=== PATIENT | female | born 1960 ===

== ENCOUNTER 2020-12-10 13:49 | Emergency (ER) | payer MEDICAID ==
--- NOTE | 2020-12-10 16:10 | CT ---
DATE OF SERVICE: 12/10/20 CLINICAL DATA: HEADACHE SINCE FALLING 1.[address] Un[address]: Multi slice axial acquisition was performed. Comparison is made to a prior exam dated 17 February 2009. The no masses or mass effect. No intracranial hemorrhage. No evidence of acute or subacute infarct. No osseous abnormalities. Impression: No acute intracranial abnormalities. MTDD
--- NOTE | 2020-12-10 16:56 | EDM.PDOC ---
ED HPI GENERAL MEDICAL PROBLEM - General Chief Complaint: Headache Stated Complaint: FELL AND LANDED ON HEAD Time Seen by Provider: 12/10/20 14:36 - History of Present Illness INITIAL COMMENTS - FREE TEXT/NARRATIVE: Pt is here with C/O H/A for [place] 10 days, after falling. She also feels tired with loss of appetite. She denies cough, SOB, wheezing. She describes her H/A as pin pricks on the side and back of her head. No visual changes, nausea, or vomiting. Headache Pain Score (Numeric/FACES): 8 - Related Data Allergies Allergy/AdvReac Type Severity Reaction Status Date / Time No Known Allergies Allergy Verified 12/10/20 14:59 Social & Family History - Family History Family Medical History: No Pertinent Family History - Tobacco Use Tobacco Use Status *Q: Never Tobacco User - Caffeine Use Caffeine Use: Reports: None - Recreational Drug Use Recreational Drug Use: No ED ROS GENERAL - Review of Systems Review Of Systems: Comprehensive ROS is negative, except as noted in HPI. Constitutional: Reports: Weakness, Fatigue Neurological: Reports: Headache ED EXAM, GENERAL - Physical Exam Exam: See Below General Appearance: Other (she looks tired, but is in no respiratory distress.) Course - Vital Signs Last Recorded V/S: Last Vital Signs Temp 97.7 F 12/10/20 15:04 Pulse 74 12/10/20 15:04 Resp 18 12/10/20 15:04 BP 157/85 H 12/10/20 15:04 Pulse Ox 94 L 12/10/20 15:04 - Orders/Labs/Meds Labs: Laboratory Tests 12/10/20 Range/Units 14:15 SARS CoV-2 RNA Rapid MARK Positive H - Re-Assessments/Exams Free Text/Narrative Re-Assessment/Exam: 12/10/20 16:54 Covid is Positive. Head CT is negative for any acute changes. She has not been vaccinated. She will be discharged home. Rest - OTC meds like Tylenol or Motrin as needed. Increase fluid intake. She refuses to get Regeneron today. Follow up as needed if her symptoms get worse. She has no further questions today, and agree's with the tx plan. Departure - Departure Time of Disposition: 16:15 Disposition: Home, Self-Care 01 Condition: Good Clinical Impression: COVID-19 - Discharge Information Instructions: COVID-19 Referrals: PCP,None [Primary Care Provider] - Forms: ED Department Discharge Additional Instructions: Discharge home. Quarantine for the next [address] negative. Tylenol and Ibuprofen for pain. Call with any questions or concerns. Sepsis Event Note (ED) - Evaluation Sepsis Screening Result: No Definite Risk - Focused Exam Vital Signs: Vital Signs Temp Pulse Resp BP Pulse Ox 12/10/20 15:04 97.7 F 74 18 157/85 H 94 L 12/10/20 14:00 97.7 F 74 20 157/85 H 94 L
== END 2020-12-10 16:20 | disposition home or self-care (01) ==
LOC: LB.ED 13:49
DX: U07.1 COVID-19 (principal)
CPT/HCPCS: 70450; 99284-25; U0002